=== PATIENT | female | born 1975 | race Caucasian/White ===

== ENCOUNTER 2016-09-27 10:35 | Emergency (ER) | payer OTHER ==
[~2016-09-27] VITALS: Ht 160 cm; Wt 63.5 kg
[~2016-09-27 10:35] MED LIST: AMBIEN10 MG PO; AUGMENTIN875 MG PO; CLEOCIN300 MG; CLINDAMYCIN HC150 MG PO; CYMBALTA60 MG PO; DIAZEPAM10 MG PO; FLEXERIL5 MG PO; FLONASE16 G1 BOTH NARES; GABAPENTIN300 MG PO; IBUPROFEN800 MG; LIDOCAINE20 MG/1 M5 PO; METHADOSE40 MG PO; MOBIC15 MG PO; MUPIROCIN 2%; NAPROSYN500 MG PO; NASONEX17 GM BOTH NARES; NOHOMEMEDS; PERCOCET 5/31 TABLET PO; PREDNISONE20 MG PO; PRILOSEC40 MG PO; VALACYCLOVIR1000 MG PO; VALIUM5 MG PO; XANAX1 MG PO; ZOVIRAX200 MG PO
[2016-09-27 10:37] VITALS: BP 143/56
[2016-09-27] MEDS ORDERED: METHADOSE40 MG PO (11:39)
[2016-09-27 11:53] LABS: EOSINOPHIL COUNT 0.3 K/uL (0-0.3); IMMATURE GRANULOCYTE (%) 0.3 % (0.0-0.7); IMMATURE GRANULOCYTE COUNT 0.3 K/uL; LYMPHOCYTE COUNT 2.3 K/uL (1.0-2.8); MCH 31.5 PG (29.0-34.0); MCHC 33.8 G/DL (30.0-36.0); MCV 93.2 FL (83-99); MEAN PLAT.VOLUME 10.4 uM^3 (9.5-12.4); MONOCYTE (%) 6.2 % (3-12); MONOCYTE COUNT 0.6 K/uL (0-0.8); NEUTROPHIL (%) 64.8 % (45-76); NEUTROPHIL COUNT 5.7 K/uL (1.8-6.4); PLATELET COUNT 166 K/uL (156-360); RBC DIS.WIDTH-CV 12.8 % (11.8-14.6); RBC DIS.WIDTH-SD 41.9 % (39-53); RED BLOOD COUNT 3.65 M/uL (3.80-5.20); WHITE BLOOD COUNT 8.9 K/uL (4.1-10.2)
[2016-09-27 12:02] LABS: CHLORIDE 105 mEq/L (99-109); POTASSIUM 3.4 mEq/L (3.7-5.4); SODIUM 139 mEq/L (136-147)
[2016-09-27 12:04] LABS: GLUCOSE 109 mg/dL (70-99)
[2016-09-27 12:05] LABS: ANION GAP 9 MEQ/L (2-14)
[2016-09-27 12:08] LABS: GFR ESTIMATE (CALCULATED) > 59 mL/min/
[2016-09-27 12:09] LABS: UREA NITROGEN (BUN) 16 mg/dL (9-23)
[2016-09-27 12:11] LABS: INFLUENZA A VIRAL ANTIGEN NEGATIVE; INFLUENZA B VIRAL ANTIGEN NEGATIVE
== END 2016-09-27 12:40 | disposition home or self-care (01) ==
LOC: EME 10:35
PROVIDERS: Physician Assistant
DX: K12.0 Recurrent oral aphthae (principal); Z86.14 Personal history of Methicillin resistant Staphylococcus aureus infection; F17.200 Nicotine dependence, unspecified, uncomplicated
CPT/HCPCS: 80048; 85025; 87502; 99281; 99283

== ENCOUNTER 2017-01-31 18:25 | Emergency (ER) | payer OTHER ==
[~2017-01-31] VITALS: Ht 160 cm; Wt 65.5 kg
[2017-01-31] MEDS ORDERED: NORCO 5/3251 TABLET PO (19:22)
[2017-01-31] MEDS ORDERED: PEN-VEE K,VEET500 MG PO (19:22)
[2017-01-31 19:58] VITALS: BP 134/67
== END 2017-01-31 19:59 | disposition home or self-care (01) ==
LOC: EXP 18:25 → EME 18:25 → EXP 19:59
PROC: 3E0T3BZ Introduction of Anesthetic Agent into Peripheral Nerves and Plexi, Percutaneous Approach (ICD-10-PCS; principal; 2017-01-31)
DX: K08.89 Other specified disorders of teeth and supporting structures (principal); K08.531 Fractured dental restorative material with loss of material; F17.200 Nicotine dependence, unspecified, uncomplicated
CPT/HCPCS: 99281; 99283

== ENCOUNTER 2017-07-05 04:34 | Emergency (ER) | payer OTHER ==
[~2017-07-05] VITALS: Ht 160 cm; Wt 67.8 kg
[~2017-07-05 04:34] MED LIST changes: +NORCO 5/3251 TABLET PO; +PEN-VEE K,VEET500 MG PO
[2017-07-05 06:31] LABS: EOSINOPHIL (%) 0.2 % (0-5); HEMATOCRIT 35.6 % (36.0-46.0); IMMATURE GRANULOCYTE (%) 0.5 % (0.0-0.7); IMMATURE GRANULOCYTE COUNT 0.1 K/uL; INSTRUMENT ABS NEUTROPHIL CT 8.5 K/uL; LYMPHOCYTE COUNT 2.3 K/uL (1.0-2.8); MCH 32.6 PG (29.0-34.0); MCHC 35.1 G/DL (30.0-36.0); MEAN PLAT.VOLUME 8.9 uM^3 (9.5-12.4); NEUTROPHIL (%) 71.7 % (45-76); NEUTROPHIL COUNT 8.5 K/uL (1.8-6.4); PLATELET COUNT 205 K/uL (156-360); RBC DIS.WIDTH-CV 13.2 % (11.8-14.6); RED BLOOD COUNT 3.83 M/uL (3.80-5.20); WHITE BLOOD COUNT 11.9 K/uL (4.1-10.2)
[2017-07-05 06:41] LABS: CHLORIDE 105 mEq/L (99-109); POTASSIUM 3.8 mEq/L (3.7-5.4); SODIUM 139 mEq/L (136-147)
[2017-07-05 06:43] LABS: GLUCOSE 85 mg/dL (70-99)
[2017-07-05 06:44] LABS: ANION GAP 13 MEQ/L (2-14)
[2017-07-05 06:47] LABS: GFR ESTIMATE (CALCULATED) > 59 mL/min/
[2017-07-05 06:48] LABS: UREA NITROGEN (BUN) 21 mg/dL (9-23)
[2017-07-05 06:52] LABS: TROP-I INTERPRETATION NEGATIVE; TROPONIN-I < 0.01 ng/mL (0.0-0.30)
[2017-07-05] MEDS ORDERED: NARCAN4 MG NS (07:03)
[2017-07-05 07:25] VITALS: BP 123/84
== END 2017-07-05 07:36 | disposition home or self-care (01) ==
LOC: EME → EDBD 04:34 → EME 04:34
PROVIDERS: Emergency Medicine
DX: T40.2X1A Poisoning by other opioids, accidental (unintentional), initial encounter (principal); F17.200 Nicotine dependence, unspecified, uncomplicated; Z85.42 Personal history of malignant neoplasm of other parts of uterus; Z88.1 Allergy status to other antibiotic agents
CPT/HCPCS: 71020; 80048; 84484; 85025; 93005; 99281; 99284